=== PATIENT | male | born 1985 | race Caucasian/White ===

== ENCOUNTER 2018-03-10 15:54 | Emergency (ER) | payer OTHER ==
[~2018-03-10] VITALS: Ht 396.2 cm; Wt 59.0 kg
[2018-03-10] MEDS ORDERED: LANTUS SOL100 UNIT/1 IJ (16:28)
== END 2018-03-10 17:57 | disposition home or self-care (01) ==
LOC: ER 15:54
DX: S61.221A Laceration with foreign body of left index finger without damage to nail, initial encounter (principal); W26.8XXA Contact with other sharp object(s), not elsewhere classified, initial encounter; Y93.89 Activity, other specified; Y92.89 Other specified places as the place of occurrence of the external cause; Y99.8 Other external cause status